=== PATIENT | female | born 1980 | race Caucasian/White ===

== ENCOUNTER → 2017-02-14 | Outpatient (CLI) | payer OTHER | LOC: FIMAGING 09:55 | PROVIDERS: ATTEND Obstetrics & Gynecology | DX: Z12.39 Encounter for other screening for malignant neoplasm of breast (principal); N63.21 Unspecified lump in the left breast, upper outer quadrant | CPT/HCPCS: G0204 ==

== ENCOUNTER → 2018-01-05 | Outpatient (CLI) | payer OTHER | LOC: BMCIMAGING 07:32 | PROVIDERS: ATTEND Obstetrics & Gynecology | DX: N92.1 Excessive and frequent menstruation with irregular cycle (principal) ==

== ENCOUNTER 2018-02-04 18:21 | Emergency (ER) | payer OTHER ==
[2018-02-04 18:54] LABS: PLATELET COUNT 194 10^3/uL (150-400)
--- NOTE | 2018-02-04 18:55 | CPEKG ---
Test Reason : OPEN Blood Pressure : / mmHG Vent. Rate : 068 BPM Atrial Rate : 067 BPM P-R Int : 178 ms QRS Dur : 077 ms QT Int : 382 ms P-R-T Axes : 055 046 054 degrees QTc Int : 407 ms Sinus arrhythmia Confirmed by Adrian Quijano ([id number]) on 02/04/2018 6:55:29 PM Referred By: Confirmed By:Adrian Quijano
--- NOTE | 2018-02-04 19:40 | EDPHY ---
H & P Stated Complaint: Chest tigthness and left arm numbness for 2 days. Time Seen by Provider: 02/04/18 18:32 HPI/ROS: CHIEF COMPLAINT: Chest pain HISTORY OF PRESENT ILLNESS: This is a 37-year-old female who presents with substernal chest pain and left arm numbness. She reports that this seemed to start four days ago after starting Macrobid for UTI. She had an elevated heart rate, throat tightness, nausea,and a headache. Then chest pain developed. She describes it a a feeling of tightness that extends into her throat (mid neck). She does not think that this is heartburn. At first she thought that she might be having an allergic reaction. She has not had skin rash or flushing. She felt somewhat short of breath when it began. She takes control pills, no calf pain or swelling, no recent travel, no FH of VTE. She has no history of diabetes or hypertension.. She was told that her cholesterol is borderline. No tobacco use. REVIEW OF SYSTEMS: A ten system review of systems was performed and is negative with the exception of the items mentioned in the HPI. Past medical history: Negative Past surgical history: Negative Family history: Negative for early coronary artery disease. Positive for DM, CHF in her father, breast and other cancers. Social history: She works in advertising. Social alcohol use. No tobacco. General Appearance: Alert. Vital signs reviewed. Blood pressure 130/88. Eyes: Pupils equal and round, no conjunctival injection, no discharge. Anicteric. ENT, Mouth: Mucous membranes are moist, no oropharyngeal erythema or edema. Neck: No lymphadenopathy, supple. Respiratory: Lungs are clear to auscultation; no wheezes, rales, or rhonchi. Cardiovascular: Regular rate and rhythm; no murmur, rub, or gallop. Gastrointestinal: Abdomen is soft and nontender, no masses or organomegaly, bowel sounds normal. Skin: Warm and dry, no rashes on exposed skin, normal color. Back: Nontender to palpation over the thoracolumbar spine. No CVAT. Extremities: No lower extremity edema, no calf tenderness or swelling. Neurological: Alert and oriented. Moving all four extremities easily and equally. Bilateral upper extremity strength is 5/5. Sensation intact to light touch over both upper extremities. Psychiatric: Normal affect. - Personal History LMP (Females 10-55): 1-7 Days Ago Current Tetanus Diphtheria and Acellular Pertussis (TDAP): Yes - Medical/Surgical History Hx Asthma: No Hx Chronic Respiratory Disease: No Hx Diabetes: No Hx Cardiac Disease: No Hx Renal Disease: No Hx Cirrhosis: No Hx Alcoholism: No Hx HIV/AIDS: No Hx Splenectomy or Spleen Trauma: No Other PMH: UTI. - Social History Smoking Status: Never smoked Constitutional: Initial Vital Signs Temperature (C) 36.7 C 02/04/18 18:21 Heart Rate 77 02/04/18 18:21 Respiratory Rate 16 02/04/18 18:21 Blood Pressure 130/88 H 02/04/18 18:21 O2 Sat (%) 98 02/04/18 18:21 O2 Delivery Mode Room Air Allergies/Adverse Reactions: No Known Allergies Allergy (Unverified 02/04/18 18:26) Home Medications: Medication Instructions Recorded Macrobid 02/04/18 Medical Decision Making - Diagnostics EKG Interpretation: EKG interpreted in MUSE. ED Course/Re-evaluation: 37-year-old female with no personal risk factors for coronary artery disease who presents with substernal chest pain and left arm numbness, onset four days ago, in the setting of UTI and use of Macrobid. EKG, chest x-ray, CBC, chemistries, troponin all reviewed. No concerning findings in this evaluation. I discussed the evaluation with the patient. Her HEART score is 1--she receives one point for moderately suspicious history. She and I discussed the heart score and she participated in the decision making as to how to proceed at this point. She is comfortable returning home with no further testing. She is given a referral for primary care. She understands the importance of follow-up. We reviewed the danger signs that should prompt her to return to the emergency department. We discussed possible etiologies of her pain. She does not think it is heartburn, but I think a course of antacids is not unreasonable. I doubt that this is an allergic reaction to Macrobid. Nothing to suggest pulmonary or other infection (she was diagnosed with UTI last week, no urinary complaints today). She complains of left arm numbness--throughout her arm/hand. No neck pain, no neurologic deficits (including sensory) on exam. Cervical radiculopathy is possible. I am not suspicious of CVA. Differential Diagnosis: Chest pain including but not limited to myocardial ischemia, pulmonary embolus, chest wall pain, pleural inflammation and pulmonary infectious causes. - Data Points Laboratory Results: Laboratory Results 02/04/18 18:40 02/04/18 18:40 Point of Care Test Results: Chemistry 02/04/18 18:42 POC Troponin I 0.00 ng/mL ng/mL (0.00-0.08) Departure - Departure Disposition: Home, Routine, Self-Care Clinical Impression: Chest pain Qualifiers: Chest pain type: other chest pain Qualified Code(s): R07.89 - Other chest pain ; R07.8 - Other chest pain Condition: Good Instructions: Chest Pain (ED) Additional Instructions: I think that you can safely discontinue the Macrobid antibiotic. I am referring you to Dr. Lamas. You can call her office tomorrow and arrange a follow up appointment for later in the week. Try one of the over the counter antacids. If you have persistent chest pain, pain into her left arm or neck, shortness of breath, any new or concerning symptoms--please return for another evaluation. Referrals: Juliette Lamas DO [Doctor of Osteopathy] - As per Instructions
[2018-02-04 19:50] VITALS: BP 111/74
== END 2018-02-04 19:49 | disposition home or self-care (01) ==
DX: R07.9 Chest pain, unspecified (principal)
CPT/HCPCS: 84484-PO